=== PATIENT | female | born 1960 | race Caucasian/White ===

== ENCOUNTER 2016-11-17 08:34 | Day surgery (SDC) | payer BC, OTHER ==
--- NOTE | 2016-11-14 14:47 | HISTORY AND PHYSICAL E ---
History and Physical NAME: NIKOLAS ROJAS : 1960 AGE: 56Y ADMITTED: 11/17/2016 ROOM: CHIEF COMPLAINT: Patient admitted regarding upper scope/colonoscope. REVIEW OF SYSTEMS: History of C. diff 2009. Colon 2010 shows rectal polyp and hemorrhoids. PAST MEDICAL HISTORY: History of C. diff. PAST SURGICAL HISTORY: Hysterectomy, cholecystectomy, . SOCIAL HISTORY: Does not smoke, does not drink. REVIEW OF SYSTEMS: GASTROINTESTINAL: Hemorrhoids. History of bleeding. FAMILY HISTORY: Malignancy. PHYSICAL EXAMINATION: VITAL SIGNS: Blood pressure is 110/70, pulse 80, respirations 18, temp is 98. HEENT: Normal. NECK: Supple. CARDIOVASCULAR: Normal. LUNGS: Clear. ABDOMEN: Soft. NEUROLOGIC: Negative. CONCLUSION: Reflux. PLAN: Colonoscopy. Patient presented at this time regarding colon screening/upper scope for reflux. Patient for upper and lower EGD/colonoscope scheduled for 11/17/2016. DICTATING PHYSICIAN: KAVEH CURTIS M.D. [id number] PHY#: [id number] ID: [id number] JOB#: [id number] ACCT: [id number] cc:ANIKET ULRICH M.D., MAHMOUD M.D. >
[~2016-11-17 08:34] MED LIST: EPINEPHRINE INJ 1 MG/10 ML DISP.SYRIN ONE; FENTANYL CITRATE INJ/PF 100 MCG/2 ML AMPUL ONE; FLUMAZENIL INJ 0.5 MG/5 ML VIAL ONE; GLUCAGON,HUMAN RECOMB 1 MG INJ ONE; GLYCOPYRROLATE INJ 0.4 MG/2 ML VIAL ONE; LIDOCAINE 2% JELLY 30 ML TUBE ONE; NALOXONE HCL INJ/PF 0.4 MG/1 ML SDV ONE; ONDANSETRON HCL INJ/PF 4 MG/2 ML SDV ONE
[2016-11-17] MEDS: MIDAZOLAM 2 MG/2 ML INJ ONE ×3 (09:35→09:53)
[2016-11-17 11:04] VITALS: BP 102/69
--- NOTE | 2016-11-20 14:16 | DISCHARGE SUMMARY E ---
Discharge Summary NAME: NIKOLAS ROJAS : 1960 AGE: 56Y ADMITTED: 11/17/2016 DISCHARGED: 11/17/2016 PROCEDURE: Colonoscopy, biopsy, upper endoscopy. HISTORY: A 56-year-old female presented for colon screening and reflux. She has multiple allergies to mention, AMOXICILLIN, BACITRACIN, SULFA, POLYMYXIN, NEOMYCIN, ADHESIVE TAPE. She presented today for GI evaluation, colon screening, and reflux. Colon shows no malignancy. Probable polyp in sigmoid area. Upper scope shows gastritis and esophagitis. DISCHARGE PLAN: Soft diet. Hold aspirin and nonsteroidal 3 days. Awaiting biopsy results. If polyp comes back positive for adenoma, consider colonoscopy 3 years and if negative for adenoma consider colonoscopy 5 years. FINAL DIAGNOSES: 1. Probable sigmoid polyp. 2. Esophagitis. 3. Gastritis. 4. Duodenitis. 5. External hemorrhoid. DICTATING PHYSICIAN: KAVEH CURTIS M.D. [id number] PHY#: [id number] ID: [id number] JOB#: [id number] ACCT: [id number] cc:ANIKET ULRICH M.D., MAHMOUD M.D. >
--- NOTE | 2016-11-20 14:17 | OPERATIVE REPORT E ---
Operative Report NAME: NIKOLAS ROJAS : 1960 AGE: 56Y DATE OF SURGERY: 11/17/2016 ROOM: PREOPERATIVE DIAGNOSIS: Gastroesophageal reflux. POSTOPERATIVE DIAGNOSES: 1. Esophagitis, mild. 2. Gastritis, mild. 3. Duodenitis, mild. PROCEDURES: 1. Esophagoscopy. 2. Gastroscopy. 3. Duodenoscopy. SURGEON: KAVEH CURTIS M.D. TISSUE REMOVED OR ALTERED: None. ANESTHESIA: Versed 4, fentanyl. DESCRIPTION: After adequate sedation, baby scope passed under guided vision, no difficulties. Esophagoscopy junction 38. Mild esophagitis. Gastroscopy: Mild gastritis. Duodenoscopy: Mild duodenitis. CONCLUSION: Esophagitis, gastritis, duodenitis. No ulcers. No malignancy. PLAN: Consider PPI as needed for reflux and symptoms. DICTATING PHYSICIAN: KAVEH CURTIS M.D. [id number] PHY#: [id number] ID: [id number] JOB#: [id number] ACCT: [id number] cc:ANIKET ULRICH M.D., MAHMOUD M.D. >
--- NOTE | 2016-11-20 14:26 | OPERATIVE REPORT E ---
Operative Report NAME: NIKOLAS ROJAS : 1960 AGE: 56Y DATE OF SURGERY: 11/17/2016 ROOM: PREOPERATIVE DIAGNOSIS: Colon screening. POSTOPERATIVE DIAGNOSES: 1. External hemorrhoids, mild. 2. Probable polyp rectosigmoid junction, about 3 mm, biopsy obtained. PROCEDURE: Colonoscopy to the cecum. SURGEON: KAVEH CURTIS M.D. ANESTHESIA: Versed 3, fentanyl 100. TISSUE REMOVED OR ALTERED: Biopsy probable polyp rectosigmoid junction, 25 cm above the anal verge. PROCEDURE: Rectal exam: External hemorrhoids. Rectosigmoid junction: Probable polyp, 3 mm size, 2-3 mm biopsy obtained. Descending colon: Normal. Transverse colon: Normal. Ascending colon: Normal. Cecum: Normal. Scope withdrawn in cecum, ascending, transverse, descending, sigmoid, all the way to the rectum. CONCLUSION: 1. External hemorrhoids. 2. Probable polyp rectosigmoid area. PLAN: Awaiting biopsy results. If the biopsy comes back adenoma, consider followup colonoscopy 3 years. If biopsy is negative, consider followup colonoscopy 5 years. DICTATING PHYSICIAN: KAVEH CURTIS M.D. [id number] PHY#: [id number] ID: [id number] JOB#: [id number] ACCT: [id number] cc:ANIKET ULRICH M.D., MAHMOUD M.D. >
== END 2016-11-17 11:10 | disposition home or self-care (01) ==
LOC: END 08:34
PROVIDERS: ATTEND Specialist
PROC: 0DBN8ZX Excision of Sigmoid Colon, Via Natural or Artificial Opening Endoscopic, Diagnostic (ICD-10-PCS; principal; 2016-11-17 09:00)
PROC: 0DJ08ZZ Inspection of Upper Intestinal Tract, Via Natural or Artificial Opening Endoscopic (ICD-10-PCS; 2016-11-17 09:00)
DX: Z12.11 Encounter for screening for malignant neoplasm of colon (principal); K21.0 Gastro-esophageal reflux disease with esophagitis; K29.70 Gastritis, unspecified, without bleeding; K29.80 Duodenitis without bleeding; K64.4 Residual hemorrhoidal skin tags; Z88.0 Allergy status to penicillin; Z88.3 Allergy status to other anti-infective agents; Z88.2 Allergy status to sulfonamides
CPT/HCPCS: 43235; 45380; 88305 ×2; J2250; J3010; J1610; J2405; J0171; J2310; J3490

== ENCOUNTER 2017-09-25 05:18 | Day surgery (SDC) | payer BC, OTHER ==
[2017-09-14 11:01] LABS: ABSOLUTE EOSINOPHILS # (AUTO) 0.1 10^3/uL (0.0-0.6); ABSOLUTE LYMPHOCYTES (AUTO) 1.6 10^3/uL (0.5-4.7); ABSOLUTE MONOCYTES (AUTO) 0.5 10^3/uL (0.1-1.4); ABSOLUTE NEUT (AUTO) 2.1 10^3/uL (1.7-8.2); BASOPHILS % (AUTO) 1.1 % (0-2); EOSINOPHILS % (AUTO) 2.9 % (0-6); HEMATOCRIT 37.2 % (36.0-47.0); HEMOGLOBIN 12.5 g/dL (12.0-15.5); LYMPHOCYTES % (AUTO) 35.8 % (13-45); MEAN CORPUSCULAR HEMOGLOBIN 31.5 pg (27.0-33.4); MEAN CORPUSCULAR HGB CONC 33.7 g/dL (32.0-36.0); MEAN CORPUSCULAR VOLUME 94 fl (80-97); PLATELET COUNT 164 10^3/uL (150-450); RED BLOOD COUNT 3.97 10^6/uL (3.72-5.28); RED CELL DISTRIBUTION WIDTH 13.9 % (11.5-14.0); SEGMENTED NEUTROPHILS % (AUTO) 49.2 % (42-78); TOTAL CELLS COUNTED % (AUTO) 100 %; WHITE BLOOD COUNT 4.4 10^3/uL (4.0-10.5)
[2017-09-14 11:05] LABS: INTERNATIONAL RATION (INR) 0.91; PROTHROMBIN TIME 12.7 SEC (11.4-15.4)
[2017-09-14 11:06] LABS: PARTIAL THROMBOPLASTIN TIME 26.6 SEC (23.5-35.8)
--- NOTE | 2017-09-14 22:05 | EKG REPORT ---
SEVERITY:- NORMAL ECG - SINUS RHYTHM : Confirmed by: Gonzalez Sanders 14-Sep-2017 22:04:05
[~2017-09-25 05:18] MED LIST changes: +DOXYCYCLINE HYCLATE 100 MG in DEXTROSE 5%-WATER 250 ML IV PRN; -EPINEPHRINE INJ 1 MG/10 ML DISP.SYRIN ONE; -FENTANYL CITRATE INJ/PF 100 MCG/2 ML AMPUL ONE; -FLUMAZENIL INJ 0.5 MG/5 ML VIAL ONE; -GLUCAGON,HUMAN RECOMB 1 MG INJ ONE; -GLYCOPYRROLATE INJ 0.4 MG/2 ML VIAL ONE; +LACTATED RINGERS 1000 ML IV PRN; +LIDOCAINE 0.5% INJ-PF (5 MG/ML) 50 ML SDV SUBCUT PRN; -LIDOCAINE 2% JELLY 30 ML TUBE ONE; -NALOXONE HCL INJ/PF 0.4 MG/1 ML SDV ONE; -ONDANSETRON HCL INJ/PF 4 MG/2 ML SDV ONE
[2017-09-25] MEDS ORDERED: SODIUM BICARBONATE 8.4% INJ 50 MEQ/50 ML DISP.SYRIN ONE (06:45)
[2017-09-25] MEDS ORDERED: LIDOCAINE 1%/EPINEPHRINE INJ 20 ML VIAL ONE (06:46)
[2017-09-25] MEDS ORDERED: POVIDONE-IODINE 5% OPH PREP SOLN 30 ML ONE (07:42)
[2017-09-25] MEDS ORDERED: MORPHINE SULFATE 10 MG/ML INJ IV PRN (08:22)
[2017-09-25] MEDS ORDERED: FENTANYL CITRATE INJ/PF 100 MCG/2 ML AMPUL IV PRN ×3 (08:22)
[2017-09-25] MEDS ORDERED: DIPHENHYDRAMINE HCL 50 MG/ML VIAL IV PRN (08:22)
[2017-09-25] MEDS ORDERED: MEPERIDINE HCL/PF INJ 25 MG/1 ML DISP.SYRIN IV PRN (08:22)
[2017-09-25] MEDS ORDERED: PROMETHAZINE HCL INJ 25 MG/1 ML VIAL IV PRN ×2 (08:22)
--- NOTE | 2017-09-25 09:45 | Operative Report ---
Operative Report DATE OF SURGERY: 09/25/17 PREOPERATIVE DIAGNOSIS: Basal cell carcinoma of the left ala groove POSTOPERATIVE DIAGNOSIS: Same OPERATION: Excision of basal cell carcinoma from the left alar groove with frozen section margin control and reconstruction with a full-thickness graft taken from the left clavicular area SURGEON: SHANICE GERONIMO ANESTHESIA: LMAC TISSUE REMOVED OR ALTERED: Basal cell carcinoma COMPLICATIONS: None ESTIMATED BLOOD LOSS: Minimal PROCEDURE: The patient was brought into the operating room. The patient was laid on the operating room table in a supine position. The patient was prepped and draped in a sterile and aseptic fashion. After a timeout we then went ahead and marked the area on the left alar groove of the nose to be resected. The 12:00 margin was towards the dorsum of the nose. The 3:00 margin was towards the sidewall of the nose. The 6:00 margin was towards the base of the nose. The 9:00 margin was towards the alar rim of the nose. Then went ahead and anesthetize the area with 1% lidocaine with epinephrine. Then went ahead and excise the area. Stitch was placed at 12:00 and it was sent for frozen section. Frozen section results came back that the deep and lateral margins were clear. We irrigated the wound with Betadine sterile water to lyse any remaining cancer cells. We then went ahead and decided that because of the size of the defect we will proceed with a skin graft. Also because of the location of the defect this would be very difficult to try to maintain an alar groove and it was felt that if we put a graft in this area and hopefully will contour to the defect and give the best possible result. Decided to harvest the graft from the left clavicular area. We then went ahead and harvest the full-thickness graft. We closed the area with 4-0 Vicryl sutures and the skin was then closed with 3- 0 PDS with knots being tied on the outside and a support stitch in the center. At the end of the case tincture of benzoin and Steri-Strips were applied with a light pressure dressing. Graft was then defatted to the appropriate size and placed into the area of defect. It was then sutured into place with 5-0 Prolene sutures leaving one end long. After all the sutures were placed we then went ahead and applied Xeroform. Then went ahead and created a bolus dressing and tied each suture 180 from each other. Then tied the sutures again to each other. Bacitracin was applied. 2 x 2's were applied and tincture benzoin and the dressing was taped into place. At the end of the case the patient was doing well and brought to the [facility] for recovery The approximate size of the lesion was approximately 1.1 x 0.8 cm. This dictation was performed using [employer] naturally speaking. If there are any inconsistencies please contact the dictating surgeon. Subjective: No complaints Objective: Vital signs stable afebrile No bleeding Dressing intact Assessment and plan: Doing well. Elevate the operative site. Resume medications. Take antibiotics for 1 day Follow-up Full instructions were given to the patient and family and they understand Portions of this note may be dictated using [employer] voice recognition software. Occasional variations and spelling and vocabulary could be possible and are unintentional. Additionally, there is a chance that some errors may not be caught or corrected. Please notify the offer of any discrepancies noted or if any statements are unclear.
--- NOTE | 2017-09-25 09:47 | Discharge Summary ---
Discharge Summary (SDC) - Discharge Final Diagnosis: Basal cell carcinoma of the left alar groove Date of Surgery: 09/25/17 Condition: Good Treatment or Instructions: Leave the nasal dressing in place. Do not rub or disturb the nose. Antibiotics for 1 day, then discontinue. Elevate operative area to decrease swelling. Do not strain, or lift heavy objects. Call for excessive bleeding, increased temperature of 101, uncontrolled pain, or excessive nausea or vomiting. You may reach Dr. Trevino through his office at [phone]. In the event of an emergency after hours, then contact Dr. Trevino through [facility]. Return to the office for a postop check on . The time will be scheduled by the nursing staff of [facility] prior to discharge. Please give the patient a copy of their labs and EKG so they can bring this to their PMD. Thank you Portions of this note may be dictated using [employer] voice recognition software. Occasional variations and spelling and vocabulary could be possible and are unintentional. Additionally, there is a chance that some errors may not be caught or corrected. Please notify the offer of any discrepancies noted or if any statements are unclear. Referrals: ANIKET ULRICH MD [Primary Care Provider] - Discharge Diet: As Tolerated Report the Following to Your Physician Immediately: Unusual Bleeding, Redness - Keep head elevated. Do not touch the nasal dressing.
[2017-09-25 12:05] VITALS: BP 134/74
--- NOTE | 2017-09-25 13:49 | Operative Report ---
Operative Report DATE OF SURGERY: 09/25/17 PREOPERATIVE DIAGNOSIS: Basal cell carcinoma of the left ala groove POSTOPERATIVE DIAGNOSIS: Same OPERATION: Excision of basal cell carcinoma from the left alar groove with frozen section margin control and reconstruction with a full-thickness graft taken from the left clavicular area SURGEON: SHANICE GERONIMO ANESTHESIA: LMAC TISSUE REMOVED OR ALTERED: Basal cell carcinoma ESTIMATED BLOOD LOSS: Minimal PROCEDURE: Please note that tincture of benzoin was not used on the patient again tincture of benzoin was not used on the patient. Tegaderm was used as a top dressing for the clavicular region.
== END 2017-09-25 11:55 | disposition home or self-care (01) ==
LOC: OROUT 05:18
PROVIDERS: ATTEND Plastic Surgery
DX: C44.311 Basal cell carcinoma of skin of nose (principal); E66.9 Obesity, unspecified; Z68.38 Body mass index [BMI] 38.0-38.9, adult; Z88.0 Allergy status to penicillin; Z79.1 Long term (current) use of non-steroidal anti-inflammatories (NSAID); Z79.899 Other long term (current) drug therapy; Z87.440 Personal history of urinary (tract) infections; Z87.898 Personal history of other specified conditions; Z85.828 Personal history of other malignant neoplasm of skin; Z01.818 Encounter for other preprocedural examination
CPT/HCPCS: 93005; 36415; 85025; 85610; 85730; 88305 ×2; 88331 ×2; 93010; 11642; 15260; J3490 ×4; J7060; 300